=== PATIENT | female | born 1955 | race Two or more races ===

== ENCOUNTER 2022-01-30 06:47 | Inpatient (IN) | payer OTHER ==
[~2022-01-30 06:47] MED LIST: COZAAR100 MG PO; TENORMIN50 M1 PO
[2022-02-01] MEDS ORDERED: CIPRO500 MG PO (06:37)
[2022-02-01] MEDS ORDERED: IBUPROFEN800 MG PO (06:37)
== END 2022-02-01 09:21 | disposition home or self-care (01) | DRG 743 ==
LOC: CIR.AMB 06:47 → O/R 15:08 → OB/GYN 15:08
PROVIDERS: ADMIT Obstetrics & Gynecology Gynecology; ATTEND Obstetrics & Gynecology Gynecology
PROC: 0USG7ZZ Reposition Vagina, Via Natural or Artificial Opening (ICD-10-PCS; 2022-01-30)
PROC: 0JQC0ZZ Repair Pelvic Region Subcutaneous Tissue and Fascia, Open Approach (ICD-10-PCS; 2022-01-30)
PROC: 0UT97ZZ Resection of Uterus, Via Natural or Artificial Opening (ICD-10-PCS; principal; 2022-01-30 14:15)
DX: D25.1 Intramural leiomyoma of uterus (principal); N81.11 Cystocele, midline; N80.0 Endometriosis of uterus; N72 Inflammatory disease of cervix uteri; Z20.822 Contact with and (suspected) exposure to COVID-19